=== PATIENT | male | born 1945 | race Caucasian/White ===

== ENCOUNTER 2017-07-26 14:05 | Emergency (ER) | payer MEDICARE, OTHER ==
[~2017-07-26] VITALS: Ht 172.7 cm; Wt 130.0 kg
[~2017-07-26 14:05] MED LIST: ASPI325T PO; ASPI81 PO; GLUCTAB PO; MULTTAB23 PO; OMEG5CAP PO; OXYC-360 PO; PRIN10TA PO; ZOCO80TA PO; [UNRECOGNIZED DRUG - OTHER] PO
[2017-07-26 14:25] VITALS: BP 141/77; PULSE 98; RESP 20; TEMP 97.6; O2SAT 98
[2017-07-26] MEDS ORDERED: ATOR80TA45 PO (15:19)
[2017-07-26] MEDS ORDERED: LISI10TA3 PO (15:23)
[2017-07-26] MEDS ORDERED: METF500T PO (15:23)
[2017-07-26] MEDS ORDERED: ASPI81TA23 PO (15:23)
[2017-07-26] MEDS ORDERED: VIAG100T PO (15:23)
[2017-07-26 15:29] VITALS: BP 118/74; PULSE 83; RESP 18; TEMP 97.8; O2SAT 96
--- NOTE | 2017-07-26 15:44 | PD ---
HPI Chief Complaint: Abnormal Results Time Seen by Provider: 15:22 Travel History International Travel<30 days: No Contact w/Intl Traveler<30days: No Traveled to known affect area: No History of Present Illness HPI 71 y/o male presents with abnormal ultrasound where he had a possible clot to his saphenous vein. He is coming in with pain and swelling with redness to that right leg over the past couple days. He states he has had these symptoms before with a clot to the deeper system a couple years ago. He is currently on no blood thinners. He denies any chest pain, shortness of breath or any other concurrent complaints at this time. Duration is couple of days. Quality is swollen. Severity is progressive. PFSH Past Medical History Arthritis: Yes (KNEES) Asthma: No Autoimmune Disease: No Blood Disorders: No Anxiety: No Depression: No Heart Rhythm Problems: Yes Cancer: No Cardiovascular Problems: Yes High Cholesterol: Yes Chemotherapy: No Chest Pain: Yes Congestive Heart Failure: No COPD: No Cerebrovascular Accident: No Coronary Artery Disease: Yes Diabetes: Yes Patient Takes Glucophage: No Diminished Hearing: No Deep Vein Thrombosis: Yes (RIGHT LEG) Endocrine: Yes GERD: No Glaucoma: No Genitourinary: Yes Headaches: No Hepatitis: No Hiatal Hernia: No Hypertension: Yes Immune Disorder: No Kidney Stones: Yes Musculoskeletal: Yes Neurologic: Yes (PERIPHERAL NEUROPATHY) Psychiatric: No Reproductive: No Respiratory: No Migraines: No Myocardial Infarction: Yes (18 YEARS AGO) Radiation Therapy: No Renal Failure: No Seizures: No Sickle Cell Disease: No Sleep Apnea: No Thyroid Disease: No Ulcer: No Tetanus Vaccination: > 5 Years Influenza Vaccination: No Past Surgical History Abdominal Surgery: No AICD: No Appendectomy: No Arteriovenous Shunt: No Body Medical Devices: RENAL STENT Cardiac Surgery: Yes Cholecystectomy: No Ear Surgery: No Endocrine Surgery: No Eye Surgery: No Genitourinary Surgery: Yes (STENT LEFT KIDNEY; VASECTOMY) Gynecologic Surgery: No Insulin Pump: No Joint Replacement: No Oral Surgery: No Pacemaker: No Thoracic Surgery: No Other Surgery: Yes Social History Alcohol Use: No Tobacco Use: No Substance Use: No Allergies-Medications (Allergen,Severity, Reaction): Coded Allergies: cyclobenzaprine (Verified Allergy, Severe, Anaphylaxis, 07/26/17) Reported Meds & Prescriptions Reported Meds & Active Scripts Active Reported Aspirin EC (Aspirin) 81 Mg Tabdr 81 Mg PO DAILY Viagra (Sildenafil Citrate) 100 Mg Tab 100 Mg PO DAILY PRN Metformin (Metformin HCl) 500 Mg Tab 500 Mg PO BIDPC Lisinopril 10 Mg Tab 10 Mg PO DAILY Atorvastatin (Atorvastatin Calcium) 80 Mg Tab 80 Mg PO HS Review of Systems Except as stated in HPI: all other systems reviewed are Neg Physical Exam Narrative GENERAL: 71 y/o male in no apparent distress SKIN: Focused skin assessment warm/dry HEAD: Atraumatic. Normocephalic. EYES: Pupils equal and round. No scleral icterus. No injection or drainage. ENT: No nasal bleeding or discharge. Mucous membranes pink and moist. NECK: Trachea midline. No JVD. CARDIOVASCULAR: Regular rate and rhythm. RESPIRATORY: No accessory muscle use. Clear to auscultation. Breath sounds equal bilaterally. GASTROINTESTINAL: Abdomen soft, non-tender, nondistended. MUSCULOSKELETAL: No obvious deformities. No clubbing. No cyanosis. Pain with palpation of right lower leg with swelling redness noted, no pain with other joints , neurovascularly intact, no lacerations over, compartments soft. NEUROLOGICAL: Awake and alert. No obvious cranial nerve deficits. Motor grossly within normal limits. Normal speech. PSYCHIATRIC: Appropriate mood and affect; insight and judgment normal. Data Data Last Documented VS Vital Signs Date Time Temp Pulse Resp B/P (MAP) Pulse Ox O2 Delivery O2 Flow Rate FiO2 07/26/17 17:30 98.0 81 18 122/77 (92) 99 Room Air Orders Orders Us Leg Venous Doppler (07/26/17 ) Complete Blood Count With Diff (07/26/17 18:11) Basic Metabolic Panel (Bmp) (07/26/17 18:11) Labs Laboratory Tests Test 07/26/17 18:20 White Blood Count 6.2 TH/MM3 Red Blood Count 4.78 MIL/MM3 Hemoglobin 15.0 GM/DL Hematocrit 44.9 % Mean Corpuscular Volume 94.0 FL Mean Corpuscular Hemoglobin 31.5 PG Mean Corpuscular Hemoglobin Concent 33.5 % Red Cell Distribution Width 14.3 % Platelet Count 228 TH/MM3 Mean Platelet Volume 8.3 FL Neutrophils (%) (Auto) 53.4 % Lymphocytes (%) (Auto) 34.0 % Monocytes (%) (Auto) 9.3 % Eosinophils (%) (Auto) 2.4 % Basophils (%) (Auto) 0.9 % Neutrophils # (Auto) 3.3 TH/MM3 Lymphocytes # (Auto) 2.1 TH/MM3 Monocytes # (Auto) 0.6 TH/MM3 Eosinophils # (Auto) 0.1 TH/MM3 Basophils # (Auto) 0.1 TH/MM3 CBC Comment DIFF FINAL Differential Comment Blood Urea Nitrogen 27 MG/DL Creatinine 1.17 MG/DL Random Glucose 87 MG/DL Calcium Level 10.0 MG/DL Sodium Level 140 MEQ/L Potassium Level 4.6 MEQ/L Chloride Level 105 MEQ/L Carbon Dioxide Level 28.5 MEQ/L Anion Gap 7 MEQ/L Estimat Glomerular Filtration Rate 61 ML/MIN MDM Medical Decision Making Medical Screen Exam Complete: Yes Emergency Medical Condition: Yes Medical Record Reviewed: Yes (pmh confirmed) Interpretation(s) CBC & BMP Diagram 07/26/17 18:20 Calcium Level 10.0 Last 24 hours Impressions Lower Extremity Ultrasound 07/26/17 0000 Signed Impressions: CONCLUSION: 1. Nonocclusive DVT involving the peroneal vein and popliteal vein. 2. Occlusive superficial thrombus in the greater saphenous vein at the level o f the knee down to the ankle.. Differential Diagnosis DVT, superficial thrombus, Jacobs's cyst, strain Narrative Course Will check ultrasound and reevaluate Ultrasound shows concurrent nonocclusive DVT. Patient with history of renal insufficiency. Creatinine is improved from prior but given this history will place on Eliquis and have follow with primary doctor for completion of treatment and other testing. Patient has no chest pain or shortness of breath and vitals are stable. He is in agreement to this plan. Patient denies any new complaints and states that they are feeling better. Patient happy with care , all questions answered. Patient knows that follow up is incumbent on them and to return to the emergency room immediately if new or worsening symptoms develop. Patient given strict return precautions, vitals reviewed and are normal , agrees to further workup as an outpatient. Diagnosis Primary Impression: DVT (deep venous thrombosis) Qualified Codes: I82.431 - Acute embolism and thrombosis of right popliteal vein Patient Instructions: General Instructions Additional Instructions: Follow with primary doctor within 1 week to get next prescription that will change to 5 mg twice a day and for reevaluation. You were given your initial one-week prescription. Return as needed, you were given your first dose here, next dose tommorrow morning Med/Other Pt SpecificInfo: Prescription(s) given Scripts Apixaban (Eliquis) 5 Mg Tab 10 MG PO BID for Blood Clot Prevention, #14 TAB 0 Refills Prov: Shireen Hdez MD 07/26/17 Disposition: 01 DISCHARGE HOME Condition: Stable Shireen Hdez MD Jul 26, 2017 15:44
[2017-07-26 17:30] VITALS: BP 122/77; PULSE 81; RESP 18; TEMP 98; O2SAT 99
--- NOTE | 2017-07-26 17:42 | RADRPT ---
EXAM DATE: 07/26/2017 5:37 PM EDT AGE/SEX: 71 years / Male INDICATIONS: Right lower extremity swelling. CLINICAL DATA: This is the patient's subsequent encounter. Patient reports that signs and symptoms h ave been present for 2 weeks and indicates a pain score of 6/10. MEDICAL/SURGICAL HISTORY: Hypertension. Heart disease. Hypercholesterolemia. History of supe rficial thrombus in the Lesser Saphenous Vein. . Left renal stent. Vasectomy. COMPARISON: No prior exams available for comparison. TECHNIQUE: Venous ultrasound of both lower extremities was performed from the inguinal ligament to t he proximal calf. Real-time, color Doppler and spectral tracing, compression and augmentation techni ques were used. FINDINGS: On today's examination there is evidence of nonocclusive thrombus in the popliteal vein at the level of the knee and peroneal vein in the calf. The rest of the deep venous structures appear t o be patent without evidence of obstruction. There is evidence of occlusive thrombus involving the gr eater saphenous vein at the level of the knee to the ankle. CONCLUSION: 1. Nonocclusive DVT involving the peroneal vein and popliteal vein. 2. Occlusive superficial thrombus in the greater saphenous vein at the level of the knee down to the ankle.. Electronically signed by: Renard Medrano MD 07/26/2017 5:41 PM EDT
[2017-07-26 18:50] LABS: AUTOMATED NEUTROPHIL # 3.3 TH/MM3 (1.8-7.7); BASOPHIL # 0.1 TH/MM3 (0-0.2); BASOPHIL % 0.9 % (0.0-2.0); EOSINOPHIL # 0.1 TH/MM3 (0-0.4); EOSINOPHIL % 2.4 % (0.0-4.0); HEMATOCRIT 44.9 % (39.0-51.0); LYMPHOCYTE # 2.1 TH/MM3 (1.0-4.8); MEAN CORPUSCULAR HEMOGLOBIN 31.5 PG (27.0-34.0); MEAN CORPUSCULAR HGB CONC 33.5 % (32.0-36.0); MEAN PLATELET VOLUME 8.3 FL (7.0-11.0); MONO % 9.3 % (0.0-8.0); MONOCYTE # 0.6 TH/MM3 (0-0.9); NEUT % 53.4 % (16.0-70.0); PLATELET COUNT 228 TH/MM3 (150-450); RED BLOOD COUNT 4.78 MIL/MM3 (4.50-5.90); RED CELL DISTRIBUTION WIDTH 14.3 % (11.6-17.2); WHITE BLOOD COUNT 6.2 TH/MM3 (4.0-11.0)
[2017-07-26 18:58] LABS: BICARBONATE 28.5 MEQ/L (21.0-32.0); CREATININE 1.17 MG/DL (0.60-1.30)
[2017-07-26] MEDS ORDERED: APIX5TAB PO (19:39)
[2017-07-26] MEDS ORDERED: APIXABAN 5 MG TABLET PO ONE (19:45)
== END 2017-07-26 20:02 | disposition home or self-care (01) ==
LOC: NEPE 14:05
DX: I82.431 Acute embolism and thrombosis of right popliteal vein (principal); I82.811 Embolism and thrombosis of superficial veins of right lower extremity; M17.9 Osteoarthritis of knee, unspecified; E78.00 Pure hypercholesterolemia, unspecified; I25.10 Atherosclerotic heart disease of native coronary artery without angina pectoris; E11.9 Type 2 diabetes mellitus without complications; I10 Essential (primary) hypertension; E11.42 Type 2 diabetes mellitus with diabetic polyneuropathy; I25.2 Old myocardial infarction; Z79.82 Long term (current) use of aspirin; Z79.899 Other long term (current) drug therapy; Z87.442 Personal history of urinary calculi; Z86.718 Personal history of other venous thrombosis and embolism; Z88.8 Allergy status to other drugs, medicaments and biological substances
CPT/HCPCS: 80048; 85025; 93971